=== PATIENT | female | born 1950 | race Caucasian/White ===

== ENCOUNTER → 2019-02-04 13:10 | Outpatient (CLI) | payer MEDICARE, OTHER, SELFPAY ==
--- NOTE | 2019-02-04 14:51 | P.PCN_ITS ---
Cardiac Stress Test Report Referral & Results Date Patient Seen: 02/04/19 Requesting provider: Link Kelley Indication: Dizziness Rest ECG: Unremarkable Procedure Note: After both written and verbal informed consent the patient had an IV started by the diagnostic imaging RN and then was hooked up to the treadmill monitoring system. The patient was placed on the treadmill at 1 mile an hour with no elevation and was then injected with the Amna scan material. The Cardiolite was then immediately administered. The patient spent an additional 2-3 minutes on the treadmill before being returned to the [facility] in the supine position. The patient had a normal response to all infused materials. Impression: Patient was hypertensive off her diltiazem Please see perfusion imaging report for details regarding possible ischemia Please note: Actual ECG tracings can be found in the PACS system.
--- NOTE | 2019-02-05 15:28 | DI.NM.S_ITS ---
DATE OF SERVICE: 02/05/2019 PROCEDURE: Pharmacological perfusion study. INDICATIONS: Shortness of breath with underlying hypertension, obesity, sleep apnea, chest discomfort. RADIOPHARMACEUTICAL: 26.5 mCi technetium-99m Myoview IV was injected at stress and 23.5 mCi technetium-99m Myoview IV was injected at rest. CARDIAC STRESS: Patient underwent pharmacological perfusion study using standard IV Lexiscan protocol under the supervision of an attending staff. She remained hemodynamically stable. However, her baseline blood pressure was high; it was 180/106 baseline rhythm was sinus. Stress EKG did not reveal any convincing ischemic changes. No significant arrhythmias. No significant symptoms were reported. RAW DATA: Significant breast shadow was seen. Patient's weight is 270 pounds. GATED STUDY: Stress LV ejection fraction reported to be 87% and resting LV ejection fraction 74%. No significant wall motion abnormalities seen. Resting end-diastolic volume is 81 mL. No transient ischemic dilatation. TID ratio is 0.90, which is within normal limits. Lung/heart ratio is 0.35, which is within normal limits. MYOCARDIAL PERFUSION SCAN: Stress supine and resting supine images revealed small-sized mildly decreased perfusion of basal inferior wall which got resolved during prone images, suggestive of diaphragmatic tissue attenuation artifact. I don't see any convincing ischemia infarction pattern. CONCLUSION: I will call this study likely a normal myocardial perfusion study with evidence of breast tissue attenuation artifact which got improved during prone images. Overall, this is a low-risk myocardial perfusion scan. JosePalmira warren - LASER SPECIALIST/kacey/ab doc#: [id number]/job#: [id number] dd: 02/05/2019 12:40:00 dt: 02/05/2019 15:15:00 DICTATING MD/COPIES TO: Vikki Guerra MD COPIES MNE: MARICARMEN
== END ==
PROVIDERS: PCP Family Medicine; Visit Provider Internal Medicine Cardiovascular Disease
DX: R07.89 Other chest pain (principal); R06.02 Shortness of breath; R42 Dizziness and giddiness; I10 Essential (primary) hypertension; E66.9 Obesity, unspecified; G47.30 Sleep apnea, unspecified
CPT/HCPCS: 78452; 93016; 93017; 93018; A9502; J2785

== ENCOUNTER → 2019-02-05 08:56 | Outpatient (CLI) | payer MEDICARE, OTHER, SELFPAY ==
--- NOTE | 2019-02-05 | DI.ECHO.S_ITS ---
[facility]---------+ [facility] +---------+ : : [address] [place] [place] : : : : [id number] : : : : Phone: [phone]---------+ Echocardiogram Report + + :Name: FRANCOISE CHRISTIAN Study Date: 02/05/2019 Height: 61 in : :[facility] Exam Location: IS Weight: 282 lb : : Gender: Female BSA: 2.2 m2 : :: 1950 Age: 68 yrs BP: 140/80 mmHg: :Reason For Study: Dizziness : :Ordering Physician: Link : :Allie Henriquez Performed By: Diamond Page : + + Interpretation Summary The left ventricle is normal in size, wall thickness, and systolic function without any focal wall motion abnormalities. The ejection fraction is estimated to be 60-65%. Diastolic parameters suggest a relaxation abnormality of the left ventricle, consistent with probable normal filling pressures. The right ventricle is normal in size and function. The right ventricular systolic pressure is estimated to be at least 28 mmHg based on an estimated right atrial pressure of 3 mm Hg. The left atrium is mildly dilated. Right atrial size is normal. There is no significant valvular heart disease. The ascending aorta is mildly enlarged. No significant changes since prior study on 08/2010. Procedure: A two-dimensional transthoracic echocardiogram with color flow and Doppler was performed. The study quality was technically adequate. Comparison is made with the echocardiogram of 09/02/2010. The patient was in normal sinus rhythm during the exam. Left Ventricle: The left ventricle is normal in size, wall thickness, and systolic function without any focal wall motion abnormalities. The ejection fraction is estimated to be 60-65%. Diastolic parameters suggest a relaxation abnormality of the left ventricle, consistent with probable normal filling pressures. Right Ventricle: The right ventricle is normal in size and function. Atria: The left atrium is mildly dilated. Right atrial size is normal. There is no Doppler evidence for an interatrial shunt. Mitral Valve: The mitral valve is normal in structure and function. There is trace mitral regurgitation. Aortic Valve: The aortic valve is trileaflet. There is no aortic valve stenosis. No aortic regurgitation is present. Tricuspid Valve: The tricuspid valve is normal in structure and function. There is a trace or physiologic amount of tricuspid regurgitation. The right ventricular systolic pressure is estimated to be at least 28 mmHg based on an estimated right atrial pressure of 3 mm Hg. Pulmonic Valve: The pulmonic valve is not well visualized. There is a trace or physiologic amount of pulmonic regurgitation. There is no significant valvular heart disease. Great Vessels: The aortic root is normal size. The ascending aorta is mildly enlarged. The pulmonary artery is not well visualized, but is probably normal size. The IVC is of normal diameter and collapses greater than 50% with a sniff. This suggests a low right atrial pressure of 3 mm Hg. Pericardium/ Pleura There is no pericardial effusion. There is no pleural effusion. MMode/2D Measurements & Calculations LVIDd: 5.1 cm LVOT diam: 2.0 cm LVIDs: 2.7 cm Ao root diam: 3.5 cm FS: 47.4 % asc Aorta Diam: 3.8 cm EPSS: 0.21 cm IVSd: 1.1 cm LVPWd: 0.99 cm LV alvarenga. diameter/BSA (cm/m^2): 2.3 LV sys. diameter/BSA (cm/m^2): 1.2 LA A2 area: 24.6 cm2 RA long axis: 5.3 cm LA A4 area: 19.2 cm2 RA area: 15.2 cm2 LA length (vol): 4.9 cm RA vol: 36.7 ml LA vol: 81.2 ml RA : 16.8 ml/m2 LA vol index: 37.1 ml/m2 IVC diam: 1.7 cm RVD1 (basal): 3.7 cm Doppler Measurements & Calculations Ao V2 max: 150.1 cm/sec LVOT Max Kelvin: 94.3 cm/sec Ao V2 mean: 95.8 cm/sec LV V1 max P.6 mmHg Ao max P.0 mmHg LV V1 VTI: 19.9 cm Ao mean P.3 mmHg MARIANN(I,D): 2.4 cm2 Ao V2 VTI: 26.0 cm MARIANN(V,D): 2.0 cm2 sev ratio: 0.76 MARIANN indexed to BSA (cm^2/m^2): 1.1 MV E max kelvin: 74.4 cm/sec TR max kelvin: 248.0 cm/sec MV A max kelvin: 95.5 cm/sec TR max P.6 mmHg MV E/A: 0.78 PA V2 max: 119.8 cm/sec Med Peak E' Kelvin: 4.6 cm/sec PA V2 mean: 76.8 cm/sec E/E' med: 16.1 PA mean P.8 mmHg Lat Peak E' Kelvin: 7.9 cm/sec PA Accel Time: 0.09 sec E/E' lat: 9.4 E/e' average: 12.7 MV dec time: 0.19 sec MV P1/2t: 58.2 msec MV P1/2t max kelvin: 76.4 cm/sec SV(LVOT): 62.7 ml MVA(P1/2t): 3.8 cm2 Reading Physician:06:00 PM
== END ==
PROVIDERS: PCP Family Medicine; Visit Provider Internal Medicine Cardiovascular Disease
DX: R42 Dizziness and giddiness (principal); R06.02 Shortness of breath; R07.89 Other chest pain; E66.9 Obesity, unspecified; I10 Essential (primary) hypertension; G47.30 Sleep apnea, unspecified
CPT/HCPCS: 93306